=== PATIENT | female | born 1955 | race Caucasian/White ===

== ENCOUNTER 2016-09-24 07:10 | Emergency (ER) | payer OTHER ==
--- NOTE | 2016-09-24 07:32 | UC ---
Respiratory Complaint HPI - HPI Summary HPI Summary: cough x 5 days + chest congestion , productive cough, yellow sputum , no fever, no chills + sore throat, pnd - History of Current Complaint Chief Complaint: UCRespiratory Stated Complaint: CHEST/NASAL CONGESTION Time Seen by Provider: 09/24/16 07:22 Hx Obtained From: Patient Hx Last Menstrual Period: 2010 Onset/Duration: Gradual Onset, Lasting Days - 5, Still Present Timing: Constant Severity Initially: Moderate Severity Currently: Moderate Character: Cough: Productive Aggravating Factors: Exertion, Deep Breaths Alleviating Factors: Nothing Associated Signs And Symptoms: Positive: URI, Nasal Congestion. Negative: Dyspnea, Fever, Chills, Pleuritic Chest Pain, Wheezing, Hemoptysis, Dizziness, Calf Pain, Calf Swelling, Edema, Hoarseness, Sinus Discomfort - Allergies/Home Medications Allergies/Adverse Reactions: Allergies Allergy/AdvReac Type Severity Reaction Status Date / Time Fentanyl Allergy NAUSEA, Verified 09/24/16 07:17 DIZZY PREFERS TO AVOID NARCOTICS AdvReac DIZZY Uncoded 09/24/16 07:17 PMH/Surg Hx/FS Hx/Imm Hx Cardiovascular History Of: Denies: Cardiac Disorders Respiratory History Of: Reports: Bronchitis - HX OF - LAST 08/2014 Denies: Asthma GI/ History Of: Denies: Gastroesophageal Reflux - Surgical History Surgical History: Yes Surgery Procedure, Year, and Place: Sinus Surgery 2008 - Family History Known Family History: Positive: None Negative: Diabetes - Social History Alcohol Use: Rare Alcohol Amount: 1 PER MONTH Substance Use Type: None Smoking Status (MU): Never Smoked Tobacco - Immunization History Most Recent Influenza Vaccination: NONE Most Recent Tetanus Shot: UNK Most Recent Pneumonia Vaccination: NONE Review of Systems Constitutional: Negative Skin: Negative Eyes: Negative ENT: Sore Throat, Nasal Discharge Respiratory: Cough Cardiovascular: Negative Gastrointestinal: Negative Genitourinary: Negative All Other Systems Reviewed And Are Negative: Yes Physical Exam Triage Information Reviewed: Yes Appearance: Well-Appearing, No Pain Distress, Well-Nourished Vital Signs: Initial Vital Signs Temp 98.1 F 09/24/16 07:18 Pulse 65 09/24/16 07:18 Resp 16 09/24/16 07:18 BP 130/73 09/24/16 07:18 Pulse Ox 98 09/24/16 07:18 Vital Signs Reviewed: Yes Eyes: Positive: Conjunctiva Clear ENT: Positive: Normal ENT inspection, Hearing grossly normal, Pharynx normal Neck: Positive: Supple, Nontender, No Lymphadenopathy Respiratory: Positive: Chest non-tender, Lungs clear, Normal breath sounds Cardiovascular: Positive: RRR, No Murmur, Pulses Normal Skin Exam: Normal UC Diagnostic Evaluation - Laboratory O2 Sat by Pulse Oximetry: 98 Respiratory Course/Dx - Differential Dx/Diagnosis Provider Diagnoses: viral bronchitis Discharge - Discharge Plan Condition: Stable Disposition: HOME Patient Education Materials: Acute Bronchitis (ED) Referrals: Non Staff,Doctor [Primary Care Provider] - 7 Days Additional Instructions: viral bronchitis no need for antibiotics cont. with rest, increase fluid, follow up with your pcp in one week as needed
[2016-09-24 07:33] VITALS: BP 130/73
== END 2016-09-24 07:37 | disposition home or self-care (01) ==
LOC: UCCORT 07:10
DX: J20.8 Acute bronchitis due to other specified organisms (principal); Z88.5 Allergy status to narcotic agent
CPT/HCPCS: 99211; G0463

== ENCOUNTER 2017-05-10 07:19 | Emergency (ER) | payer OTHER ==
[2017-05-10 07:32] VITALS: BP 110/66
--- NOTE | 2017-05-10 07:57 | UC ---
Ear Complaint HPI - HPI Summary HPI Summary: She has had ear pressure and decreased hearing in the left ear for about one month. NO actual pain only pressure at times. She has had this before years past and it resolved on its own after about a month or so. - History of Current Complaint Chief Complaint: UCEar Stated Complaint: LEFT EAR COMPLAINT Time Seen by Provider: 05/10/17 07:45 Hx Obtained From: Patient Hx Last Menstrual Period: 2010 ?: No Onset/Duration: Gradual Onset, Lasting Weeks Severity Initially: Moderate Severity Currently: Moderate Aggravating Factors: Nothing Alleviating Factors: Nothing Associated Signs/Symptoms: Positive: Hearing Loss, URI Symptoms. Negative: Swelling @ - Allergies/Home Medications Allergies/Adverse Reactions: Allergies Allergy/AdvReac Type Severity Reaction Status Date / Time Fentanyl Allergy NAUSEA, Verified 05/10/17 07:27 DIZZY PREFERS TO AVOID NARCOTICS AdvReac DIZZY Uncoded 05/10/17 07:27 PMH/Surg Hx/FS Hx/Imm Hx Previously Healthy: No - Prior ear pressure - Surgical History Surgical History: Yes Surgery Procedure, Year, and Place: Sinus Surgery 2008 - Family History Known Family History: Positive: None Negative: Diabetes - Social History Alcohol Use: Occasionally Alcohol Amount: 1 PER MONTH Substance Use Type: None Smoking Status (MU): Never Smoked Tobacco - Immunization History Most Recent Influenza Vaccination: current Most Recent Tetanus Shot: UNK Most Recent Pneumonia Vaccination: NONE Review of Systems ENT: Other - ear pressure. All Other Systems Reviewed And Are Negative: Yes Physical Exam Triage Information Reviewed: Yes Appearance: Well-Appearing, No Pain Distress, Well-Nourished Vital Signs: Initial Vital Signs Temp 99.3 F 05/10/17 07:28 Pulse 80 05/10/17 07:28 Resp 18 05/10/17 07:28 BP 110/66 05/10/17 07:28 Pulse Ox 100 05/10/17 07:28 Vital Signs Reviewed: Yes Eyes: Positive: Conjunctiva Clear ENT: Positive: Normal ENT inspection, Hearing grossly normal, Pharynx normal, TM bulging - left tm mildly bulging without effusion or redness., Uvula midline. Negative: Pharyngeal erythema, Nasal congestion, Nasal drainage, TM dull, TM red, Tonsillar swelling, Tonsillar exudate, Trismus, Hoarse voice, Sinus tenderness Neck exam: Normal Neck: Positive: Supple, Nontender, No Lymphadenopathy Respiratory: Positive: Normal breath sounds, No respiratory distress, No accessory muscle use. Negative: Respiratory distress, Decreased breath sounds, Accessory muscle use, Crackles, Rhonchi, Stridor Cardiovascular: Positive: RRR, No Murmur, Pulses Normal Abdomen Description: Positive: Nontender, No Organomegaly, Soft. Negative: Distended, Guarding Musculoskeletal: Positive: ROM Intact, No Edema Neurological: Positive: Alert, Muscle Tone Normal. Negative: Fatigued Psychological: Positive: Age Appropriate Behavior Skin: Negative: rashes Ear Complaint Course/Dx - Differential Dx/Diagnosis Provider Diagnoses: eustacian tube dysfunction left side. Discharge - Discharge Plan Condition: Good Disposition: HOME Prescriptions: Fluticasone NASAL SPRAY 50MCG* [Flonase NASAL SPRAY 50MCG*] 2 spray BOTH NARES DAILY #1 btl Referrals: No Primary Care Phys,NOPCP [Primary Care Provider] - Geo Raymond MD [Medical Doctor] - If Needed Additional Instructions: Over the counter decongestants for about one week and the flonase daily for one month. If not improved then follow up with ENT.
== END 2017-05-10 07:58 | disposition home or self-care (01) ==
LOC: UCCORT 07:19
DX: H69.92 Unspecified Eustachian tube disorder, left ear (principal)
CPT/HCPCS: 99212; G0463

== ENCOUNTER 2019-05-09 07:01 | Emergency (ER) | payer OTHER ==
[2019-05-09 07:17] VITALS: BP 137/81
--- NOTE | 2019-05-09 07:26 | UC ---
Skin Complaint HPI - HPI Summary HPI Summary: 63 yo woman in good health, with 2 day history of erythematous, mildly itchy rash on the left forehead x 2 days. Has felt a bit rundown, without fever, and has had some tenderness behind the left ear x 1 day. She has not had the shingles vaccine. --she has also had a month of left ear fullness, decreased hearing, and some tinnitus without dizziness. --one year old grandchild will be visiting in 2 days. - History of Current Complaint Chief Complaint: UCSkin Time Seen by Provider: 05/09/19 07:19 Stated Complaint: SKIN COMPLAINT,EAR COMPLAINT Hx Obtained From: Patient Hx Last Menstrual Period: 2010 Onset/Duration: Gradual Onset, Lasting Days - 2 Timing: Constant Onset Severity: Mild Current Severity: Mild Pain Intensity: 0 Location: Discrete Aggravating Factor(s): Nothing Alleviating Factor(s): Nothing Associated Signs & Symptoms: Positive: Rash - Allergy/Home Medications Allergies/Adverse Reactions: Allergies Allergy/AdvReac Type Severity Reaction Status Date / Time fentanyl Allergy Nausea Verified 05/09/19 07:14 PREFERS TO AVOID NARCOTICS AdvReac DIZZY Uncoded 05/09/19 07:14 PMH/Surg Hx/FS Hx/Imm Hx Previously Healthy: Yes - history of melanoma - Surgical History Surgical History: Yes Surgery Procedure, Year, and Place: Sinus Surgery 2008 - Family History Known Family History: Positive: Other - father had skin cancer Negative: Diabetes - Social History Occupation: Retired Lives: Alone Alcohol Use: Rare Alcohol Amount: 1 PER MONTH Substance Use Type: None Smoking Status (MU): Never Smoked Tobacco - Immunization History Most Recent Influenza Vaccination: current Most Recent Tetanus Shot: UNK Most Recent Pneumonia Vaccination: NONE Review of Systems All Other Systems Reviewed And Are Negative: Yes Constitutional: Positive: Fatigue. Negative: Fever Skin: Positive: Rash Eyes: Positive: Negative ENT: Positive: Ear Ache, Nasal Discharge, Sinus Congestion Respiratory: Positive: Cough - mild, without shortness of breath Cardiovascular: Positive: Negative Gastrointestinal: Positive: Negative Genitourinary: Positive: Negative Motor: Positive: Negative Neurovascular: Positive: Negative Musculoskeletal: Positive: Negative Neurological: Positive: Negative Psychological: Positive: Negative Is Patient Immunocompromised?: No Physical Exam Triage Information Reviewed: Yes Appearance: Well-Appearing, No Pain Distress Vital Signs: Initial Vital Signs Temp 99.0 F 05/09/19 07:10 Pulse 62 05/09/19 07:10 Resp 14 05/09/19 07:10 BP 137/81 05/09/19 07:10 Pulse Ox 98 05/09/19 07:10 Eyes: Positive: Conjunctiva Clear ENT: Positive: Pharynx normal, TM dull, TM red - left TM has mild erythema and moderate serous fluid Dental Exam: Normal Neck: Positive: Supple, Nontender, Enlarged Nodes @ - mild swelling of left anterior posterior auricular node; no anterior or posterior cervical adenopathy. Respiratory: Positive: Lungs clear, Normal breath sounds Cardiovascular: Positive: RRR, No Murmur Musculoskeletal Exam: Normal Neurological Exam: Normal Psychological Exam: Normal Skin: Positive: Rashes - 4 cm patch of erythema mid left forehead consistent with early herpes zoster. Course/Dx - Course Course Of Treatment: --discussed varicella zoster and indication for antivirals. --discussed infectivity and ensuring that her grandchild has had varicella vaccine. --symptomatic treatment of serous otitis, follow up with PMD if persists. - Differential Diagnoses - Skin Complaint Differential Diagnoses: Eczema, Impetigo, Varicella Zoster - Diagnoses Provider Diagnosis: Varicella zoster Discharge ED - Sign-Out/Discharge Documenting (check all that apply): Patient Departure All imaging exams completed and their final reports reviewed: No Studies - Discharge Plan Condition: Good Disposition: HOME Prescriptions: ValACYclovir (*) [Valtrex 1 GM(*)] 1 gm PO Q8H #21 tab Patient Education Materials: Shingles (ED) Referrals: No Primary Care Phys,NOPCP [Primary Care Provider] - Additional Instructions: Begin valacyclivr this morning for the impact it can have on decreasing post herpetic neuralgia. Follow up with [facility] opthalmologist in the next 1-2 days for an eye check. For fluid inthe middle ear space: you might try use of guaifensin (Mucinex) 600mg twice daily and use of nasal rinses. If the symptoms persist, evaluation by an ENT is in order. - Billing Disposition and Condition Condition: GOOD Disposition: Home
== END 2019-05-09 07:54 | disposition home or self-care (01) ==
LOC: UCCORT 07:01
DX: B01.9 Varicella without complication (principal); B02.9 Zoster without complications; Z85.820 Personal history of malignant melanoma of skin; Z88.5 Allergy status to narcotic agent
CPT/HCPCS: 99212; G0463